=== PATIENT | female | born 1955 | race Caucasian/White ===

== ENCOUNTER 2018-06-17 07:23 | Day surgery (SDC) | payer BC ==
[~2018-06-17 07:23] MED LIST: Acetaminophen TAB* 325 MG PO PRN; Buffered Lidocaine 1% SYRIN* 1 ML/SYRINGE INTRADERM ONE; mitoMYcin PWD* 0.2 MG in Sterile Water for Inj* 1 ML OPHTHALMIC SCH
[2018-06-17] MEDS ORDERED: Midazolam* 1 MG/ML 2 ML VIAL (2 MG) ONE ×2 (09:40→09:41)
[2018-06-17 10:11] VITALS: BP 116/71
--- NOTE | 2018-06-17 10:42 | OP ---
OPERATIVE NOTE: DATE OF OPERATION: 06/17/18 DATE OF : 55 SURGEON: Gunnar Suarez M.D. PREOPERATIVE DIAGNOSIS: Uncontrolled glaucoma, left eye. POSTOPERATIVE DIAGNOSIS: Uncontrolled glaucoma, left eye. OPERATIVE PROCEDURE: Insertion of XEN stent, left eye. ANESTHESIA: Local with MAC. COMPLICATIONS: None. DESCRIPTION OF PROCEDURE: The patient was prepped and draped in the usual sterile fashion. Lid spec ulum was placed. A paracentesis made at the 2 o'clock position using the 75 blade. A 1% non-preserv ed intracameral lidocaine injected into the chamber followed by Provisc. A 1.8 mm clear corneal inci rod was made at the 5 o'clock position. XEN implant was marked and then placed subconjunctivally at the 11 o'clock position without difficulty. Mitomycin-C 0.2 mg/mL was injected near the tip of the stent and then the anterior chamber thoroughly irrigated with balance salt solution. [id number]/[facility] #: [id number]
[2018-06-17] MEDS ORDERED: Proparacaine 0.5% OPHTH.SOL* 15 ML BTL ONE (11:00)
[2018-06-17] MEDS ORDERED: Povidone Iodine 5% OPTH* 30 ML BTL ONE (11:00)
[2018-06-17] MEDS ORDERED: Lidocaine 1%* 5 ML VIAL ONE (11:00)
[2018-06-17] MEDS ORDERED: Lidocaine 2% EPI 1:200000 MPF*10-20 ML VIAL ONE (11:00)
[2018-06-17] MEDS ORDERED: Neomycin/Polymy/Dex OPTH.SUSP* MAXITROL 0.1% 5 ML ONE (11:00)
== END 2018-06-17 10:25 | disposition home or self-care (01) ==
LOC: OREAST 07:23
PROVIDERS: ATTEND Specialist
DX: H40.1122 Primary open-angle glaucoma, left eye, moderate stage (principal); Z96.1 Presence of intraocular lens; E78.00 Pure hypercholesterolemia, unspecified; M19.90 Unspecified osteoarthritis, unspecified site
CPT/HCPCS: A9270-GY; C1725; J2250; J9280